=== PATIENT | male | born 1995 | race Hispanic/Latino ===

== ENCOUNTER 2020-04-14 02:58 | Emergency (ER) | payer BC, SELFPAY ==
[2020-04-14 03:34] LABS: RBC Red Blood Cell Count 5.07 M/uL (4.33-5.43)
[2020-04-14 03:35] LABS: Protime INR 1.04
[2020-04-14 03:38] LABS: Absolute Lymphocytes (CBC) 3.1 K/uL (0.7-4.9); Basophils % 0.7 % (0-1.3); Hematocrit 43.1 % (39.6-49.0); Lymphocytes % 41.1 % (15.3-44.8); MPV 9.4 fL (7.6-11.3)
[2020-04-14] MEDS ORDERED: NA CHLORIDE 0.9% 1,000 ML ONE (03:40)
[2020-04-14 03:51] LABS: ALT/SGPT 53 U/L (12-78); AST/SGOT 30 U/L (15-37); Albumin 4.7 g/dL (3.4-5.0); Alkaline Phosphatase 60 U/L (45-117); BUN Blood Urea Nitrogen 15 mg/dL (7-18); Bicarbonate 26 mmol/L (21-32); Bilirubin Direct 0.1 mg/dL (0-0.2); Bilirubin Total 0.5 mg/dL (0.2-1.0); Glucose Level 106 mg/dL (74-106); Lipase 86 U/L (73-393); Potassium 3.6 mmol/L (3.5-5.1); Protein, Total 8.3 g/dL (6.4-8.2); Sodium Level 139 mmol/L (136-145)
--- NOTE | 2020-04-14 04:50 | ER ---
Nurse's Notes [facility] Name: Wili Villa Age: 24 yrs Sex: Male : 1995 Arrival Date: 04/14/2020 Time: 03:00 Bed 6 Private MD: Diagnosis: Abdominal Pain;Vomiting Presentation: 04/14 03:15 Chief complaint: Patient states: Pain to RUQ of abdomen radiating to epigastric area lp1 that began about 30 min ago; States "I've noticed this happens when I drink alcohol"; patient states x1 episode of emesis [employer]. 03:15 Coronavirus screen: Client denies travel out of the [place] in the last 14 days. At this lp1 time, the client does not indicate any symptoms associated with coronavirus-19. Ebola Screen: No symptoms or risks identified at this time. Initial Sepsis Screen: Does the patient meet any 2 criteria? No. Patient's initial sepsis screen is negative. Does the patient have a suspected source of infection? No. Patient's initial sepsis screen is negative. Risk Assessment: Do you want to hurt yourself or someone else? Patient reports no desire to harm self or others. Onset of symptoms was April 14, 2020 at 02:30. 03:15 Method Of Arrival: Ambulatory lp1 03:15 Acuity: ELOISA 3 lp1 Historical: - Allergies: 03:26 No Known Allergies; lp1 - Home Meds: 03:26 None [Active]; lp1 - PMHx: 03:26 None; lp1 - PSHx: 03:26 None; lp1 - Immunization history:: Adult Immunizations up to date. - Social history:: Smoking status: Patient denies any tobacco usage or history of. Patient uses alcohol, on a daily basis. claims drinking about a 6 pack/day. Screenin:41 Abuse screen: Denies threats or abuse. Denies injuries from another. Nutritional lp1 screening: No deficits noted. Tuberculosis screening: No symptoms or risk factors identified. Fall Risk None identified. Assessment: 03:30 General: Appears in no apparent distress. Behavior is calm, cooperative, appropriate lp1 for age. Pain: Complains of pain in epigastric area Pain radiates to right upper quadrant Pain currently is 7 out of 10 on a pain scale. Quality of pain is described as sharp. Neuro: Level of Consciousness is awake, alert, obeys commands. Cardiovascular: Patient's skin is warm and dry. Respiratory: Respiratory effort is even, unlabored. GI: Abdomen is non-distended, Bowel sounds present X 4 quads. Abdomen is tender to palpation in epigastric area and right upper quadrant Reports vomiting. : No signs and/or symptoms were reported regarding the genitourinary system. EENT: No signs and/or symptoms were reported regarding the EENT system. Derm: Skin is pink, warm \\T\\ dry. Musculoskeletal: No deficits noted. 03:35 Reassessment: Patient denies need for pain mediation at this time. lp1 Vital Signs: 03:14 BP 147 / 98 LA Sitting (auto/reg); Pulse 70 MON; Resp 22 S; Temp 97.7(O); Pulse Ox 100% ds4 on R/A; 03:15 Weight 90.72 kg (R); Height 5 ft. 7 in. (170.18 cm); Pain 7/10; lp1 04:00 BP 121 / 66; Pulse 68; Resp 16; Pulse Ox 100% on R/A; lp1 05:02 BP 119 / 69; Pulse 71; Resp 16; Pulse Ox 99% on R/A; lp1 03:15 Body Mass Index 31.32 (90.72 kg, 170.18 cm) lp1 ED Course: 03:00 Patient arrived in ED. cl3 03:02 Brittany Mustafa, TATIANNA is Primary Nurse. lp1 03:04 Abdi Mandujano MD is Attending Physician. 7 03:20 Inserted saline lock: 20 gauge in right antecubital area, using aseptic technique. lp1 Blood collected. 03:39 Arm band placed on. lp1 03:41 Triage completed. lp1 03:41 Patient has correct armband on for positive identification. lp1 05:01 No provider procedures requiring assistance completed. IV discontinued, No lp1 redness/swelling at site. Pressure dressing applied. Administered Medications: 03:30 Drug: NS 0.9% 1000 ml Route: IV; Rate: 1000 ml; Site: right antecubital; lp1 05:01 Follow up: IV Status: Completed infusion; IV Intake: 1000ml lp1 Intake: 05:01 IV: 1000ml; Total: 1000ml. lp1 Outcome: 04:50 Discharge ordered by . 7 05:01 Discharged to home ambulatory. lp1 05:01 Condition: good 05:01 Discharge instructions given to patient, Instructed on discharge instructions, follow up and referral plans. medication usage, Demonstrated understanding of instructions, follow-up care, medications, Prescriptions given X 3. 05:02 Patient left the ED. lp1 Signatures: Brittany Mustafa RN RN lp1 Donavon Loredo ds4 Reji Gatica cl3 Abdi Mandujano MD MD mh7 Corrections: (The following items were deleted from the chart) 03:43 03:30 GI: Abdomen is non-distended, Bowel sounds present X 4 quads. Abdomen is tender lp1 to palpation in epigastric area and right upper quadrant lp1
--- NOTE | 2020-04-14 04:51 | EDPHYS ---
Physician Documentation [facility] Name: Wili Villa Age: 24 yrs Sex: Male : 1995 Arrival Date: 04/14/2020 Time: 03:00 Bed 6 Private MD: ED Physician Abdi Mandujano HPI: 04/14 03:29 This 24 yrs old Male presents to ER via Unassigned with complaints of Side mh7 Pain, Vomiting. 03:29 The patient presents with abdominal pain in the right upper quadrant. Onset: The mh7 symptoms/episode began/occurred last night. The symptoms do not radiate. Associated signs and symptoms: Pertinent positives: nausea and vomiting, Pertinent negatives: anorexia, blood in stools, chest pain, constipation, diarrhea, dysuria, fever, headache, hematuria, palpitations, shortness of breath, testicular pain, vomiting blood. The symptoms are described as intermittent, vague, waxing/waning. Modifying factors: The symptoms are alleviated by nothing, the symptoms are aggravated by alcohol. Severity of pain: At its worst the pain was moderate last night, in the emergency department the pain is unchanged. Historical: - Allergies: 03:26 No Known Allergies; lp1 - Home Meds: 03:26 None [Active]; lp1 - PMHx: 03:26 None; lp1 - PSHx: 03:26 None; lp1 - Immunization history:: Adult Immunizations up to date. - Social history:: Smoking status: Patient denies any tobacco usage or history of. Patient uses alcohol, on a daily basis. claims drinking about a 6 pack/day. ROS: 03:29 Constitutional: Negative for fever, chills, and weight loss, Eyes: Negative for injury, mh7 pain, redness, and discharge, ENT: Negative for injury, pain, and discharge, Neck: Negative for injury, pain, and swelling, Cardiovascular: Negative for chest pain, palpitations, and edema, Respiratory: Negative for shortness of breath, cough, wheezing, and pleuritic chest pain, Back: Negative for injury and pain, : Negative for injury, bleeding, discharge, and swelling, MS/Extremity: Negative for injury and deformity, Skin: Negative for injury, rash, and discoloration, Neuro: Negative for headache, weakness, numbness, tingling, and seizure, Psych: Negative for depression, anxiety, suicide ideation, homicidal ideation, and hallucinations, Allergy/Immunology: Negative for hives, rash, and allergies, Endocrine: Negative for neck swelling, polydipsia, polyuria, polyphagia, and marked weight changes, Hematologic/Lymphatic: Negative for swollen nodes, abnormal bleeding, and unusual bruising. Exam: 03:29 Head/Face: Normocephalic, atraumatic. Eyes: Pupils equal round and reactive to light, mh7 extra-ocular motions intact. Lids and lashes normal. Conjunctiva and sclera are non-icteric and not injected. Cornea within normal limits. Periorbital areas with no swelling, redness, or edema. Neck: Trachea midline, no thyromegaly or masses palpated, and no cervical lymphadenopathy. Supple, full range of motion without nuchal rigidity, or vertebral point tenderness. No Meningismus. Chest/axilla: Normal chest wall appearance and motion. Nontender with no deformity. No lesions are appreciated. Cardiovascular: Regular rate and rhythm with a normal S1 and S2. No gallops, murmurs, or rubs. Normal PMI, no JVD. No pulse deficits. Respiratory: Lungs have equal breath sounds bilaterally, clear to auscultation and percussion. No rales, rhonchi or wheezes noted. No increased work of breathing, no retractions or nasal flaring. 03:29 Back: No spinal tenderness. No costovertebral tenderness. Full range of motion. Skin: Warm, dry with normal turgor. Normal color with no rashes, no lesions, and no evidence of cellulitis. MS/ Extremity: Pulses equal, no cyanosis. Neurovascular intact. Full, normal range of motion. Neuro: Awake and alert, GCS 15, oriented to person, place, time, and situation. Cranial nerves II-XII grossly intact. Motor strength 5/5 in all extremities. Sensory grossly intact. Cerebellar exam normal. Normal gait. Psych: Awake, alert, with orientation to person, place and time. Behavior, mood, and affect are within normal limits. 03:29 Constitutional: The patient appears in no acute distress, alert, awake, uncomfortable. 03:29 Abdomen/GI: Inspection: abdomen appears normal, Bowel sounds: normal, in all quadrants, Palpation: moderate abdominal tenderness, in the epigastric area and right upper quadrant, Rectal exam: the exam is deferred, because of patient request, Indicators: McBurney's point is not tender, Villalobos's sign is negative, Rovsing's sign is negative, Obturator sign is negative, Psoas sign is negative, Liver: no appreciated palpable abnormalities, Hernia: not appreciated. Vital Signs: 03:14 BP 147 / 98 LA Sitting (auto/reg); Pulse 70 MON; Resp 22 S; Temp 97.7(O); Pulse Ox 100% ds4 on R/A; 03:15 Weight 90.72 kg (R); Height 5 ft. 7 in. (170.18 cm); Pain 7/10; lp1 04:00 BP 121 / 66; Pulse 68; Resp 16; Pulse Ox 100% on R/A; lp1 05:02 BP 119 / 69; Pulse 71; Resp 16; Pulse Ox 99% on R/A; lp1 03:15 Body Mass Index 31.32 (90.72 kg, 170.18 cm) lp1 MDM: 03:28 Patient medically screened. [facility] 04:47 Differential diagnosis: bowel obstruction, cholecystitis, Cholelithiasis, mh7 diverticulitis, gastritis, gastroesophageal reflux disease, non-specific abd pain, pancreatitis, Peptic Ulcer Disease. Data reviewed: vital signs, nurses notes, lab test result(s), amylase and lipase, CBC, electrolytes, urinalysis, radiologic studies, CT scan. Data interpreted: Pulse oximetry: on room air is 100 %. Interpretation: normal. Counseling: I had a detailed discussion with the patient and/or guardian regarding: the historical points, exam findings, and any diagnostic results supporting the discharge/admit diagnosis, lab results, radiology results, the need for outpatient follow up, to return to the emergency department if symptoms worsen or persist or if there are any questions or concerns that arise at home. Response to treatment: the patient's symptoms have resolved after treatment, the patient's blood pressure is in an acceptable range, mental status has returned to baseline, the patient no longer shows bradycardia, the patient is not short of breath, the patient is not tachycardic, the patient's pain is gone, the patient's temperature has normalized. 04/14 03:24 Order name: Basic Metabolic Panel [facility] 04/14 03:24 Order name: CBC with Diff lp1 04/14 03:24 Order name: Hepatic Function lp1 04/14 03:24 Order name: Lipase lp1 04/14 03:24 Order name: PT-INR lp1 04/14 03:42 Order name: CBC with Automated Diff; Complete Time: 04:07 [facility] 04/14 03:28 Order name: CT Abd/Pelvis - IV Contrast Only lp1 04/14 03:43 Order name: Protime (+INR); Complete Time: 04:07 [facility] 04/14 03:51 Order name: Basic Metabolic Panel; Complete Time: 04:07 [facility] 04/14 03:51 Order name: Liver (Hepatic) Function; Complete Time: 04:07 [facility] 04/14 03:51 Order name: Lipase; Complete Time: 04:07 [facility] 04/14 03:24 Order name: IV Saline Lock; Complete Time: 03:26 lp1 04/14 03:24 Order name: Labs collected and sent; Complete Time: 03:26 lp1 Administered Medications: 03:30 Drug: NS 0.9% 1000 ml Route: IV; Rate: 1000 ml; Site: right antecubital; 1 05:01 Follow up: IV Status: Completed infusion; IV Intake: 1000ml lp1 Disposition: 04/14/20 04:50 Discharged to Home. Impression: Abdominal Pain, Vomiting. - Condition is Stable. - Discharge Instructions: Nausea and Vomiting, Adult, [id number], Abdominal Pain, Adult, [id number]. - Prescriptions for Zofran ODT 4 mg Oral tablet,disintegrating - place 1 tablet by TRANSLINGUAL route every 8 hours As needed; 10 tablet. Bentyl 20 mg Oral Tablet - take 1 tablet by ORAL route every 6 hours As needed; 20 tablet. Pepcid 20 mg Oral Tablet - take 1 tablet by ORAL route every 12 hours for 5 days; 10 tablet. - Medication Reconciliation Form, Thank You Letter, Antibiotic Education, Prescription Opioid Use form. - Follow up: Private Physician; When: 1 - 2 days; Reason: Worsening of condition, Recheck today's complaints, Continuance of care, Re-evaluation by your physician. - Problem is new. - Symptoms have improved. Signatures: [facility] Brittany Mustafa RN RN lp1 Abdi Mandujano MD MD 7 Corrections: (The following items were deleted from the chart) 05:02 04:50 04/14/2020 04:50 Discharged to Home. Impression: Abdominal Pain; Vomiting. lp1 Condition is Stable. Forms are Medication Reconciliation Form, Thank You Letter, Antibiotic Education, Prescription Opioid Use. Follow up: Private Physician; When: 1 - 2 days; Reason: Worsening of condition, Recheck today's complaints, Continuance of care, Re-evaluation by your physician. Problem is new. Symptoms have improved. mh7
[2020-04-14 05:20] VITALS: TEMP 97.7
[2020-04-14 05:24] VITALS: BP 119/69; O2SAT 99
--- NOTE | 2020-04-15 08:58 | RAD REPORT ---
EXAM DESCRIPTION: CT - Abdomen Pelvis W Contrast - 04/14/2020 6:42 am CLINICAL HISTORY: The patient is 24 years old and is Male; ABD PAIN TECHNIQUE: Axial computed tomography images of the abdomen and pelvis with intravenous contrast. S agittal and coronal reformatted images were created and reviewed. This CT exam was performed using one or more of the following dose reduction techniques: automated exposure control, adjustment of t he mA and/or kV according to patient size, and/or use of iterative reconstruction technique. COMPARISON: No relevant prior studies available. FINDINGS: Lung bases: Unremarkable. No mass. No consolidation. ABDOMEN: Liver: Mild fatty liver. Gallbladder and bile ducts: Unremarkable. No calcified stones. No ductal dilation. Pancreas: No findings to suggest acute pancreatitis. No mass visualized. No ductal dilation. Spleen: Unremarkable. No splenomegaly. Adrenals: Unremarkable. No mass. Kidneys and ureters: Unremarkable. No solid mass. No hydronephrosis. Stomach and bowel: No bowel dilatation or obstruction. No bowel wall thickening. Stomach is unremarkable. PELVIS: Appendix: The visualized appendix is normal. No pericecal inflammation to suggest acute appendic itis. Bladder: Unremarkable. No mass. Reproductive: Unremarkable as visualized. ABDOMEN and PELVIS: Intraperitoneal space: Unremarkable. No free air. No significant fluid collection. Bones/joints: No acute fracture. No dislocation. Soft tissues: Unremarkable. Vasculature: Unremarkable. No abdominal aortic aneurysm. Lymph nodes: No pathologically enlarged lymph nodes. IMPRESSION: No acute obstructive or inflammatory process identified. Normal appendix. Electronically signed by: Magaly Sewell MD 04/14/2020 4:29 AM CDT Due to temporary technical issues with the PACS/Fluency reporting system, reports are being signed by the in house radiologist without review as a courtesy to ensure prompt reporting. The interpreting r adiologist is fully responsible for the content of the report.
== END 2020-04-14 05:02 | disposition home or self-care (01) ==
LOC: ER 02:58
DX: R11.2 Nausea with vomiting, unspecified (principal)
CPT/HCPCS: 36415; 74177; 80048; 80076; 82565; 83690; 85025; 85610; 96360; 96361; 99284; J7030; Q9967